=== PATIENT | female | born 1965 | race Caucasian/White ===

== ENCOUNTER 2018-08-28 16:11 | Inpatient (IN) | payer MEDICAID ==
[~2018-08-28] VITALS: Ht 167.6 cm; Wt 99.8 kg
[2018-08-28 16:15] VITALS: BP 132/84
--- NOTE | 2018-08-28 16:25 | NUR ---
biba with c/o bl legs, right hip, and "spine pain radiating to head" x today. DENIES N/V/D; SKIN IS PINK/WARM/DRY; AAOX4 WITH EVEN AND STEADY GAIT; LUNGS CLEAR BL; HR EVEN AND REGULAR; PT DENIES ANY FEVER, CP, SOB, OR COUGH AT THIS TIME; PATIENT STATES PAIN OF 10/10 AT THIS TIME; VSS; PATIENT POSITIONED FOR COMFORT; HOB ELEVATED; BEDRAILS UP X2; BED DOWN. ER MD MADE AWARE OF PT STATUS.
[2018-08-28] MEDS ORDERED: NACL 0.9% 1,000 ML IV SCH (16:30)
[2018-08-28] MEDS ORDERED: PIPERACILLIN/TAZOBACTAM 3.375 GM in DEXT 5% MINI-BAG PLUS 50 ML IV ONE (16:30)
--- NOTE | 2018-08-28 16:40 | NUR ---
# 16 FR Sue catheter utilizing sterile technique. Immediate return of cloudy, yellow urine noted. Bedside drainage bag placed below level of bladder. Urine sample collected and sent to lab. Pt tolerated procedure well.
[2018-08-28] MEDS ORDERED: PIPERACILLIN/TAZOBACTAM 3.375 GM VIAL IV ONE (16:48)
--- NOTE | 2018-08-28 16:48 | NUR ---
rt at bedside
--- NOTE | 2018-08-28 16:48 | NUR ---
lab at bedside
--- NOTE | 2018-08-28 16:50 | NUR ---
LAB AT BEDSIDE.
--- NOTE | 2018-08-28 17:00 | NUR ---
Note undone in EDM - 08/28/18 at 1701 by JENNI biba with c/o bl legs, right hip, and "spine pain radiating to head" x today. DENIES N/V/D; SKIN IS PINK/WARM/DRY; AAOX4 WITH EVEN AND STEADY GAIT; LUNGS CLEAR BL; HR EVEN AND REGULAR; PT DENIES ANY FEVER, CP, SOB, OR COUGH AT THIS TIME; PATIENT STATES PAIN OF 10/10 AT THIS TIME; VSS; PATIENT POSITIONED FOR COMFORT; HOB ELEVATED; BEDRAILS UP X2; BED DOWN. ER MADE AWARE OF PT STATUS.
--- NOTE | 2018-08-28 17:02 | NUR ---
X-RAY AT BEDSIDE.
[2018-08-28 17:18] LABS: BASOPHILS % (AUTO) 0.2 % (0.0-2.0); EOSINOPHILS # (AUTO) 0.5 K/uL (0-0.4); HEMATOCRIT 47.3 % (36-48); LYMPHOCYTES # (AUTO) 2.1 K/uL (2.5-16.5); LYMPHOCYTES % (AUTO) 34.7 % (20.5-51.1); MEAN CORPUSCULAR HEMOGLOBIN 33 pg (27-31); MEAN CORPUSCULAR HGB CONC 34 g/dL (33-37); MEAN CORPUSCULAR VOLUME 96.7 fL (80-94); MONOCYTES # (AUTO) 0.5 K/uL (0.8-1.0); MONOCYTES % (AUTO) 8.2 % (1.7-9.3); NEUTROPHILS # (AUTO) 2.9 K/uL (1.8-7.7); NEUTROPHILS % (AUTO) 48.9 % (42.2-75.2); PLATELET COUNT (AUTO) 126 K/uL (140-450); RED BLOOD CELL COUNT(AUTO) 4.89 MIL/uL (4.20-5.40); RED CELL DISTRIBUTION WIDTH 13.5 % (11.6-13.7); WHITE BLOOD COUNT (AUTO) 5.9 K/uL (4.8-10.8)
[2018-08-28 17:27] LABS: BARBITURATE, URINE NEG. ng/ml (NEG <=200); BENZODIAZEPINE, URINE NEG. ng/mL (NEG <=200); CANNABINOID, URINE NEG. ng/mL (NEG <=50); COCAINE, URINE NEG. ng/mL (NEG <=300); OPIATE, URINE NEG. ng/mL (NEG <=2000); PHENCYCLIDINE SCREEN,URINE NEG. ng/mL (NEG <=25)
[2018-08-28 17:39] LABS: PROTHROMBIN TIME 10.4 secs (10.8-13.4)
[2018-08-28 17:45] LABS: POTASSIUM 3.8 mmol/L (3.5-5.1); SODIUM SERUM 138 mmol/L (136-145)
[2018-08-28 17:46] LABS: ANION GAP 10.2 (8-16); ASPARTATE AMINOTRANSFERASE 88 U/L (15-37); CARBON DIOXIDE 26.6 mmol/L (21-32); CHLORIDE 105 mmol/L (98-107); CREATININE 0.6 mg/dL (0.6-1.3); GFR ARICAN-AMERICAN 134 mL/min (>90); GLUCOSE 88 mg/dL (74-106); TOTAL BILIRUBIN 0.7 mg/dL (0.0-1.0); UREA NITROGEN, BLOOD 13 mg/dL (7-18)
[2018-08-28 17:47] LABS: MAGNESIUM 1.8 mg/dL (1.8-2.4)
[2018-08-28] MEDS ORDERED: DOCUSATE SODIUM 100 MG GELCAP PO PRN (17:55)
[2018-08-28] MEDS ORDERED: ONDANSETRON 4 MG/2 ML VIAL IM/IVP PRN (17:55)
[2018-08-28] MEDS ORDERED: ACETAMINOPHEN 325 MG TAB PO PRN (17:55)
[2018-08-28 18:03] LABS: APPEARANCE,URINE SLIGHTLY CLOUDY (CLEAR); BILIRUBIN,URINE NEGATIVE (NEGATIVE); BLOOD, URINE 1+ (NEGATIVE); COLOR,URINE YELLOW (YELLOW); NITRITE, URINE POSITIVE (NEGATIVE); PH,URINE 6.5 (5.0-9.0); UGLUCOSE NEGATIVE (NEGATIVE)
[2018-08-28 18:04] LABS: LEUKOCYTE ESTERASE ,URINE 3+ (NEGATIVE); RBC,URINE 3-10 (FEW) /HPF (0-5); URINE AMORPHOUS URATE 2+ /HPF (None Seen); WBC,URINE TOO MANY TO COUNT /HPF (0-5)
[2018-08-28 18:05] LABS: ACETONE, SERUM NEGATIVE (NEGATIVE)
--- NOTE | 2018-08-28 18:17 | NUR ---
PALMIRA ADMITTED TO THE HOSPITAL TO THE CARE OF [facility] WITH DR ACOSTA FOLLOWING. PATIENT STABLE DURING TRANSFER IN [facility]. REPORT GIVEN TO DIEGO DUNCAN.
[2018-08-28 18:29] VITALS: BP 136/85
[2018-08-28] MEDS ORDERED: ZOLPIDEM 5 MG TAB PO PRN (18:30)
[2018-08-28] MEDS ORDERED: LORazepam 2 MG/ML VIAL IM/IVP PRN (18:30)
[2018-08-28 18:32] LABS: CHOL/HDL RATIO 4.3 (1-4.5); PHOSPHORUS 3.3 mg/dL (2.5-4.9)
[2018-08-28 19:00] LABS: FREE T4 (FREE THYROXINE) 1.36 ng/dL (0.76-1.46)
--- NOTE | 2018-08-28 19:30 | NUR ---
RECEIVED BEDSIDE REPORT FROM DAY SHIFT NURSE MARGA RN, PT RESTING, NO DISTRESS NOTED, IV TO L FA 20G PATENT, INTACT, SL AT THIS MOMENT, PT ON ROOM AIR, NO SOB NOTED, PT ARRIVED AT UNIT AT 1805, ORIENT PT TO ROOM, BED, CALL LIGHT, PT STATED UNDERSTANDING, INITIAL ASSESSMENT DONE, ALL SAFETY PRECAUTION MET, CALL LIGHT WITHIN REACH, WILL CONTINUE TO MONITOR.
[2018-08-28] MEDS: MORPHINE SULFATE 4 MG/ML SYR IVP PRN (19:41)
--- NOTE | 2018-08-28 19:41 | NUR ---
PT STATED HAVING PAIN 8/10 TO THE BACK AND LEG, PAIN MEDICATION PER MD ORDER ADMINISTERED, PT TOLERATED WELL, NO DISTRESS NOTED, CALL LIGHT WITHIN REACH, WILL CONTINUE TO MONITOR.
[2018-08-28] MEDS ORDERED: ARIP15TA1 PO (19:43)
[2018-08-28] MEDS ORDERED: GABA300C PO (19:43)
[2018-08-28] MEDS ORDERED: BACL10TA4 PO (19:43)
[2018-08-28] MEDS: NACL 0.9% 1,000 ML IV SCH (19:45)
[2018-08-28 20:00] VITALS: BP 159/99
[2018-08-28] MEDS ORDERED: GABAPENTIN 300 MG CAP PO SCH (20:00)
[2018-08-28] MEDS: BACLOFEN 10 MG TAB PO SCH (20:58)
--- NOTE | 2018-08-28 21:00 | NUR ---
HEPARIN SUB Q INJECTION NOT ADMINISTERED DUE TO PT LOW PLATELETS.
--- NOTE | 2018-08-28 21:13 | NUR ---
PT STATED HAVING TROUBLE SLEEPING AND REQUESTED SLEEPING MEDICATION, MEDICATION PER MD ORDER ADMINISTERED, PT ALSO STATED SHE HAS NOT DONE BM SINCE 4 DAYS AGO, COLACE PER MD ORDER GIVEN, PT TOLERATED WELL, NO DISTRESS NOTED, CALL LIGHT WITHIN REACH, WILL CONTINUE TO MONITOR.
[2018-08-29 00:01] VITALS: BP 141/86
[2018-08-29] MEDS: MORPHINE SULFATE 4 MG/ML SYR IVP PRN ×3 (00:29→09:44)
--- NOTE | 2018-08-29 00:29 | NUR ---
CHECKED ON PT, V/S TAKEN, WITHIN PT BASELINE, PT STATED HAVING PAIN, PAIN MEDICATION ADMINISTERED, PER DR ORDER, CALL LIGHT WITHIN REACH, WILL CONTINUE TO MONITOR.
--- NOTE | 2018-08-29 03:39 | NUR ---
PT RESTING, NO DISTRESS NOTED, V/S TAKEN WITHIN PT BASELINE, CALL LIHGT WITHIN REACH, WILL CONTINUE TO MONITOR.
[2018-08-29] MEDS: NACL 0.9% 1,000 ML IV SCH ×3 (04:27→17:52)
--- NOTE | 2018-08-29 05:03 | NUR ---
PT C/O PAIN, PAIN MEDICATION ORDERED ADMINISTERED, PT TOLERATED WELL, NO DISTRESS NOTED, CALL LIGHT WITHIN REACH, WILL CONTINUE TO MONITOR.
[2018-08-29 07:03] LABS: BASOPHILS % (AUTO) 0.8 % (0.0-2.0); EOSINOPHILS # (AUTO) 0.2 K/uL (0-0.4); EOSINOPHILS % (AUTO) 3.4 % (0.0-4.0); HEMATOCRIT 44.7 % (36-48); HEMOGLOBIN 15.1 g/dL (12.0-16.0); LYMPHOCYTES # (AUTO) 2.7 K/uL (2.5-16.5); LYMPHOCYTES % (AUTO) 44.9 % (20.5-51.1); MEAN CORPUSCULAR HEMOGLOBIN 33 pg (27-31); MEAN CORPUSCULAR HGB CONC 34 g/dL (33-37); MEAN CORPUSCULAR VOLUME 97.7 fL (80-94); MONOCYTES # (AUTO) 0.5 K/uL (0.8-1.0); NEUTROPHILS # (AUTO) 2.6 K/uL (1.8-7.7); NEUTROPHILS % (AUTO) 42.9 % (42.2-75.2); PLATELET COUNT (AUTO) 136 K/uL (140-450); RED BLOOD CELL COUNT(AUTO) 4.58 MIL/uL (4.20-5.40); RED CELL DISTRIBUTION WIDTH 13.7 % (11.6-13.7)
[2018-08-29 07:16] LABS: ANION GAP 11.5 (8-16); CARBON DIOXIDE 26.5 mmol/L (21-32); CREATININE 0.6 mg/dL (0.6-1.3)
--- NOTE | 2018-08-29 07:18 | NUR ---
ENDORSED PT TO DAY SHIFT NURSE MARGA RN, PT STABLE, NO DISTRESS NOTED, CALL LIGHT WITHIN REACH.
--- NOTE | 2018-08-29 07:18 | NUR ---
RECEIVED PATIENT REPORT AT BEDSIDE. PATIENT IS ASLEEP BUT AROUSABLE. NO S/S OF DISTRESS NOTED AT THIS TIME. FALL PRECAUTIONS IN PLACE. WILL CONTINUE TO MONITOR
[2018-08-29 07:24] LABS: MAGNESIUM 1.8 mg/dL (1.8-2.4); PHOSPHORUS 3.9 mg/dL (2.5-4.9)
--- NOTE | 2018-08-29 07:44 | NUR ---
PATIENT HAS BEEN SCREENED AND CATEGORIZED MODERATE NUTRITION RISK. PATIENT WILL BE SEEN WITHIN 3-5 DAYS OF ADMISSION. 08/31/18 09/02/[address]
[2018-08-29 08:00] VITALS: BP 144/85
[2018-08-29] MEDS: BACLOFEN 10 MG TAB PO SCH ×2 (09:31→21:04)
[2018-08-29] MEDS: GABAPENTIN 300 MG CAP PO SCH ×3 (09:32→17:52)
[2018-08-29] MEDS: LACTOBACILLUS RHAMNOSUS GG 1 EACH CAP PO SCH (09:32)
[2018-08-29] MEDS: NICOTINE TRANSD SYS 7 MG/24 HR PATCH TD SCH (09:32)
[2018-08-29] MEDS: ARIPiprazole 10 MG TAB PO SCH (09:33)
--- NOTE | 2018-08-29 10:46 | NUR ---
PATIENT SPEAKING WITH THE ATTORNEY LAW CLERK REGARDING PLACEMENT
[2018-08-29] MEDS ORDERED: ATORVASTATIN 20 MG TAB PO SCH (11:31)
[2018-08-29] MEDS ORDERED: ASPIRIN 81 MG TAB.CHEW PO SCH (11:32)
--- NOTE | 2018-08-29 14:55 | NUR ---
Systems Security Consultant Note: I met with patient at bedside. I introduced myself to patient and explained to her my role as a medical legal investigator. She verbalized understanding. I obtained the following information from patient. Prior to hospital admission she was living in [place], [place]. A account supervisor helped her find a room that was for rent. She was paying $700 a month for rent. She stated the property inspector (Berny Severino) told the account supervisor patient had 5 days to get out of room. She reported she does not want to pursue any type of legal action against property inspector for not properly evicting her. She told me she paid property inspector for the month of August and he will be refunding $400 on Saturday09/01/18. She sated she receives $910 from SSDI per month and does not have any SSDI funds at this time. She told me she does not have any other place to go upon discharge. She said her ravin lift is in a storage unit located in [place], [place] and her brother Mark has access to storage unit. I told her that I was not able to assist her with room and board placement, unless she had SSDI funds available. I explained to her that owners/administrators of room and boards do not accept patients unless they have SSDI/SSI funds available. She verbalized understanding. She denied alcohol/substance abuse. I provided het with a list of homeless shelters, food sinha, and room and boards. I also provided her with a list of counseling/mental health services per patient's request. She denied SI and HI. I faxed inquiries to the following snfs in case patient needs skilled and/or fci snf placement: [facility] Addendum: 09/01/18 at 0833 by Lizett Cameron SS correction: I provided her with a list of homeless shelters, food sinha, and room and boards.
--- NOTE | 2018-08-29 15:04 | NUR ---
PATIENT ASLEEP IN BED. NO S/S OF DISTRESS NOTED
--- NOTE | 2018-08-29 15:30 | NUR ---
HIGHTOWER CATHETER DISCONTINUED 1200ML OF CLEAR YELLOW URINE OUTPUT NOTED
--- NOTE | 2018-08-29 15:31 | NUR ---
PATIENT HAD A BM. STOOL LARGE AND SOLID. PATIENT CLEANED AND REPOSITIONED FOR COMFORT. WILL CONTINUE TO MONITOR
[2018-08-29 16:36] VITALS: BP 114/81
[2018-08-29] MEDS: ALBUTEROL SULFATE/IPRATROPIU 3 ML SOL IH PRN (18:51)
--- NOTE | 2018-08-29 19:19 | NUR ---
PATIENT REPORT GIVEN AT BEDSIDE. PATIENT ENDORSED IN STABLE CONDITION
--- NOTE | 2018-08-29 19:20 | NUR ---
RECEIVED BEDSIDE REPORT FROM DAY SHIFT NURSE MARGA RN, PT STABLE, NO DISTRESS NOTED, IV TO R AC 20G, PATENT, INTACT, INFUSING NS @ 50ML/HR, INFUSING WELL, PT ON ROOM AIR, NO SOB, INITIAL ASSESSMENT DONE, ALL SAFETY PRECAUTION MET, CALL LIGHT WITHIN REACH, WILL CONTINUE TO MONITOR.
--- NOTE | 2018-08-29 19:45 | NUR ---
ENDORSED PT TO DIEGO MELENDEZ FOR CONTINUOUS OF CARE, PT IN STABLE CONDITION.
--- NOTE | 2018-08-29 19:46 | NUR ---
RECEIVED ENDORSEMENT FROM HEATHER CORTEZ AT BEDSIDE, DUE TO SWITCH IN ASSIGNMENT. PT IN STABLE CONDITION.
--- NOTE | 2018-08-29 20:00 | NUR ---
PT IN BED RESTING WITH EYES CLOSED, HOWEVER PT AROUSABLE TO PAIN. V/S FOLLOWS T 99.2 P 80 R 20 B/P 127/61 02 98% ON R/A. PT IS IN LOW BED WITH ALL FALLS PRECAUTIONS IN PLACE. PT /CO MODERATE PAIN IN HER BACK AND LEGS 5/10.
--- NOTE | 2018-08-29 20:25 | NUR ---
PT GIVEN ORDERED BACLOFEN FOR C/O OF MODERATE PAIN IN LEGS AND BACK. WILL CONTINUE TO MONITOR PT FOR PAIN RELIEF.
--- NOTE | 2018-08-29 20:30 | NUR ---
PT PLATELETS ARE 136(L) TRENDING UPWARD FROM 126. DR. YOON PRIMARY RESIDENT MD CONSULTED. DR. YOON SAID TO GIVE BECAUSE RESIDENT HAS C/O OF LEG PAIN AND SEQUENTIALS CANNOT BE USED. PT GIVEN ORDERED HEPARIN.
--- NOTE | 2018-08-29 22:30 | NUR ---
PT RESTING PEACEFULLY WITH EYES CLOSED NO C/O VOICED AND NO S/S OF PAIN OR DISTRESS NOTED. ALL FALLS PRECAUTIONS IN PLACE AND PT HAS N/S RUNNING AT 50MLS/HR.
[2018-08-30] VITALS: BP 153/92
[2018-08-30] MEDS: MORPHINE SULFATE 4 MG/ML SYR IVP PRN ×3 (01:26→22:13)
--- NOTE | 2018-08-30 01:31 | NUR ---
PT C/O SEVERE PAIN IN LEGS AND BACK 02/18 PAIN WAS GIVEN IVP /PRN MORPHINE 2MG/1/2ML.WILL CONTINUE TO MONIOTR FOR EFFECTIVENESS.
--- NOTE | 2018-08-30 03:30 | NUR ---
PT SLEEPING NO S/S OF PAIN O DISTRESS NOTED.
--- NOTE | 2018-08-30 07:25 | NUR ---
RPORT GIVEN TO ASHU RN DAYSHIFT NURSE AT BEDSIDE PT IN STABLE CONDITION.
--- NOTE | 2018-08-30 07:30 | NUR ---
RECEIVED PT AAOX4. NO SOB NOTED. NO C/O PAIN AT THIS TIME. IV TO RT FOREARM PATENT AND INTACT, CHEST DIMINISHED AIR ENTRY TO THE BASES. ABDOMEN SOFT, BOWEL SOUNDS PRESENT. PT HAS BLE PARALYSIS, PT ABLE TO TURN SELF FROM SIDE TO SIDE WITH HELP. INSTRUCTED PT TO CALL FOR ASSISTANCE, CALL LIGHT WITHIN REACH, PT VERBALIZED UNDERSTANDING.
[2018-08-30 08:00] VITALS: BP 146/78
[2018-08-30 08:34] LABS: BASOPHILS # (AUTO) 0.1 K/uL (0.00-0.22); BASOPHILS % (AUTO) 1.1 % (0.0-2.0); EOSINOPHILS # (AUTO) 0.2 K/uL (0-0.4); EOSINOPHILS % (AUTO) 2.9 % (0.0-4.0); HEMATOCRIT 44.5 % (36-48); HEMOGLOBIN 14.8 g/dL (12.0-16.0); LYMPHOCYTES # (AUTO) 2.8 K/uL (2.5-16.5); LYMPHOCYTES % (AUTO) 51.3 % (20.5-51.1); MEAN CORPUSCULAR HEMOGLOBIN 33 pg (27-31); MEAN CORPUSCULAR HGB CONC 33 g/dL (33-37); MEAN CORPUSCULAR VOLUME 97.9 fL (80-94); MONOCYTES # (AUTO) 0.4 K/uL (0.8-1.0); MONOCYTES % (AUTO) 6.4 % (1.7-9.3); NEUTROPHILS # (AUTO) 2.1 K/uL (1.8-7.7); NEUTROPHILS % (AUTO) 38.3 % (42.2-75.2); PLATELET COUNT (AUTO) 124 K/uL (140-450); RED BLOOD CELL COUNT(AUTO) 4.55 MIL/uL (4.20-5.40); RED CELL DISTRIBUTION WIDTH 13.5 % (11.6-13.7); WHITE BLOOD COUNT (AUTO) 5.5 K/uL (4.8-10.8)
[2018-08-30 08:51] LABS: ANION GAP 8.2 (8-16); CARBON DIOXIDE 28.5 mmol/L (21-32); CREATININE 0.5 mg/dL (0.6-1.3); POTASSIUM 3.7 mmol/L (3.5-5.1)
[2018-08-30 09:06] LABS: MAGNESIUM 1.9 mg/dL (1.8-2.4); PHOSPHORUS 3.4 mg/dL (2.5-4.9)
[2018-08-30] MEDS: GABAPENTIN 300 MG CAP PO SCH ×3 (09:48→17:56)
[2018-08-30] MEDS: ASPIRIN 81 MG TAB.CHEW PO SCH (09:48)
[2018-08-30] MEDS: ARIPiprazole 10 MG TAB PO SCH (09:48)
[2018-08-30] MEDS: ATORVASTATIN 20 MG TAB PO SCH (09:48)
[2018-08-30] MEDS: BACLOFEN 10 MG TAB PO SCH ×2 (09:49→22:00)
[2018-08-30] MEDS: LACTOBACILLUS RHAMNOSUS GG 1 EACH CAP PO SCH (09:49)
[2018-08-30] MEDS: HYDROcodone/APAP 5/325 MG 1 TAB TAB PO PRN (09:49)
[2018-08-30] MEDS: NICOTINE TRANSD SYS 7 MG/24 HR PATCH TD SCH (09:53)
--- NOTE | 2018-08-30 12:20 | NUR ---
PT CONSUMED 100% OF BREAKFAST AND LUNCH. FOOD TOLERATED WELL.
[2018-08-30 17:00] VITALS: BP 142/82
[2018-08-30] MEDS: NACL 0.9% 1,000 ML IV SCH (17:53)
--- NOTE | 2018-08-30 19:00 | NUR ---
PT AWAKE, TALKING TO HER PHONE. NO SOB NOTED. NO COMPLAINTS MADE. WILL ENDORSE TO NEXT SHIFT NURSE FOR CONTINUITY OF CARE.
--- NOTE | 2018-08-30 19:15 | NUR ---
RECEIVED REPORT FROM ASHU CORTEZ DAYSHIFT FOR CONTINUITY OF CARE, PT IN STABLE CONDITION.
--- NOTE | 2018-08-30 20:00 | NUR ---
PT IN BED WITH ALL FALLS PRECAUTIONS IN PLACE. IV SITE R FA 20G INTACT AND RUNNING NS AT 20MLS/HR. V/S FOLLOWS T 98.0 P 80 R 18 B/P 138/80 02 93% ON R/A. NO C/O VOICED AND CALL FREEMAN IN REACH.
--- NOTE | 2018-08-30 21:00 | NUR ---
SPOKE WITH DR. YOON CONCERNING PT HEPARIN ORDER WIT PT PLATELETS AT 126. DR. YOON SAID TO GIVE MEDICATION. PT ALSO GIVEN ORDERED BACLOFEN.
--- NOTE | 2018-08-30 22:29 | NUR ---
PT C/O 7/10 PAIN IN LOWER EXTREMITIES, GIVEN 2MG MORPHINE IVP. WILL MONITOR PT FOR PAIN RELIEF.
[2018-08-31] VITALS: BP 121/73
--- NOTE | 2018-08-31 07:25 | NUR ---
REPORT GIVEN TO DORA CORTEZ DAYSHIFT NURSE AT BEDSIDE FOR CONTINUITY OF CARE, PT IN STABLE CONDITION.
--- NOTE | 2018-08-31 07:30 | NUR ---
RECEIVED PT FROM BUSINESS MACHINES TEACHER NURSE, PT IS ASLEEP LYING ON THE BED WITH SIDE RAILS UP AND CALL LIGHT WITHIN REACH, RESPIRATION EVEN. FALL PRECAUTION INITIATED. PT HAS AN IV LINE ON THE RT FA G.20 WITH NS AT 20ML/HR, INFUSING AND INTACT. NO SIGN OF DISTRESS NOTED AND WILL MONITOR PT.
[2018-08-31 08:00] VITALS: BP 155/81
--- NOTE | 2018-08-31 08:15 | NUR ---
PT IS AWAKE AND VITAL SIGNS TAKEN AND IS WITHIN NORMAL LIMIT. NO SIGN OF DISTRESS NOTED AND WILL CONTINUE TO MONITOR PT.
[2018-08-31] MEDS: GABAPENTIN 300 MG CAP PO SCH ×3 (09:02→17:53)
[2018-08-31] MEDS: ATORVASTATIN 20 MG TAB PO SCH (09:02)
[2018-08-31] MEDS: BACLOFEN 10 MG TAB PO SCH ×2 (09:02→22:16)
[2018-08-31] MEDS: LACTOBACILLUS RHAMNOSUS GG 1 EACH CAP PO SCH (09:02)
[2018-08-31] MEDS: ASPIRIN 81 MG TAB.CHEW PO SCH (09:02)
[2018-08-31] MEDS: ARIPiprazole 10 MG TAB PO SCH (09:03)
--- NOTE | 2018-08-31 09:17 | NUR ---
RECEIVED PATIENT ON ROOM AIR, PULSE OX SATURATION 94%. NO SOB. NO RESPIRATORY DISTRESS NOTED AT THIS TIME. NO HHN GIVEN, NOT INDICATED AT THIS TIME. WILL CONTINUE TO MONITOR.
[2018-08-31] MEDS: NACL 0.9% 1,000 ML IV SCH (15:13)
[2018-08-31] MEDS: NICOTINE TRANSD SYS 7 MG/24 HR PATCH TD SCH (15:23)
[2018-08-31] MEDS: MORPHINE SULFATE 4 MG/ML SYR IVP PRN (15:23)
[2018-08-31 16:00] VITALS: BP 144/74
--- NOTE | 2018-08-31 17:54 | NUR ---
PT IS AWAKE AND EATING HER DINNER, MEDICATIONS GIVEN VIA ORAL AND IV PIGGYBACK AND PT TOLERATED IT. NO SIGN OF DISTRESS NOTED AND WILL CONTINUE TO MONITOR PT.
--- NOTE | 2018-08-31 19:15 | NUR ---
RECEIVED ENDORSEMENT FROM DORA CORTEZ DAYSHIFT NURSE FOR CONTINUITY OF CARE, PT IN STABLE CONDITION.
--- NOTE | 2018-08-31 19:15 | NUR ---
ENDORSED PT TO FINAL INSPECTOR MOTORCYLES NURSEAL FOR CONTINUITY OF CARE. PT IS STABLE AT THIS TIME.
[2018-08-31 20:00] VITALS: BP 137/81
--- NOTE | 2018-08-31 20:00 | NUR ---
PT IN BED AOX4 WITH ALL FALLS PRECAUTIONS IN PLACE. PT WAS TURNED, CHANGED AND REPOSITIONED. V/S FOLLOWS T 98.2 P 78 R 20 B/P 124/73. NO C/O VOICED AT THIS TIME.
--- NOTE | 2018-08-31 21:30 | NUR ---
PT GIVEN SCHEDULED BACLOFEN. LAST BLOOD DRAW WAS YESTERDAY, PT PLATELET LEVEL WAS 124, SPOKE WITH DR. YOON REGARDING HEPARIN ORDER. DR. YOON SAID TO GIVEN HEPARIN DUE DVT PROTOCOL AND TO PT BEING BED BOUND DUE TO PARAPLEGIA OF LOWER LIMBS.
[2018-08-31] MEDS: guaiFENesin 20 MG/ML UDC PO PRN (22:19)
[2018-08-31] MEDS: MORPHINE SULFATE 2 MG/ML SYR IVP PRN (22:21)
--- NOTE | 2018-08-31 22:30 | NUR ---
PT C/O SEVERE PAIN IN LOWER LIMBS 02/18 PAIN WAS GIVEN MORPHINE 1MG IVP PRN ORDERED. WILL CONTINUE TO MONITOR PT FOR EFFECTIVENESS OF PAIN MEDICATION. PT ALSO TURNED , CHANGED AND REPOSITIONED/ BED IN LOW POSITION AND ALL FALLS PROTOCOL IN PLACE.
--- NOTE | 2018-09-01 00:30 | NUR ---
PT IN BED RESTING BUT AROUSABLE TO NAME. CONTINUES ON FALLS PRECAUTIONS. PT DECLINES TO BE TURNED AND CHANGED AT THIS TIME. WILL RETURN TO ATTEMPT TO TURN, CHANGE AND REPOSITION PT. V/S FOLLOWS T 98.6 P 75 R18 B/P 137/81 02 92% ON ROOM AIR. PT SAID SHE HAS NO PAIN AT THIS TIME.
--- NOTE | 2018-09-01 03:30 | NUR ---
PT TURNED , CHANGED AND REPOSITIONED.
[2018-09-01] MEDS: MORPHINE SULFATE 2 MG/ML SYR IVP PRN (04:45)
--- NOTE | 2018-09-01 05:00 | NUR ---
PT C/O SEVERE PAIN IN BLE GIVEN IVP/PRN MORPHINE. WILL CONTINUE TO MONITOR FOR PAIN
--- NOTE | 2018-09-01 07:30 | NUR ---
REPORT GIVEN TO CRYS CORTEZ DAYSHIFT NURSE AT BEDSIDE FOR CONTINUITY OF CARE, PT IN STABLE CONDITION.
--- NOTE | 2018-09-01 07:31 | NUR ---
RECEIVED REPORT FROM PET CARE ASSOCIATE NURSE. PT IN STABLE CONDITION. RESPIRATIONS EVEN AND UNLABORED. IV INTACT AND PATENT. SAFETY MEASURES IN PLACE. CALL LIGHT AT BEDSIDE. BED IN LOW POSITION. WILL CONTINUE TO MONITOR.
[2018-09-01 08:00] VITALS: BP 141/86
--- NOTE | 2018-09-01 09:00 | NUR ---
GAVE ORDERED DUE MEDICATIONS. PT TOLERATED WELL. WILL CONTINUE TO MONITOR.
[2018-09-01] MEDS: BACLOFEN 10 MG TAB PO SCH ×2 (09:16→20:48)
[2018-09-01] MEDS: ATORVASTATIN 20 MG TAB PO SCH (09:17)
[2018-09-01] MEDS: GABAPENTIN 300 MG CAP PO SCH ×3 (09:18→16:54)
[2018-09-01] MEDS: LACTOBACILLUS RHAMNOSUS GG 1 EACH CAP PO SCH (09:18)
[2018-09-01] MEDS: ARIPiprazole 10 MG TAB PO SCH (09:18)
[2018-09-01] MEDS: ASPIRIN 81 MG TAB.CHEW PO SCH (09:18)
[2018-09-01] MEDS ORDERED: KETOROLAC 15 MG/ML VIAL IM SCH (09:45)
--- NOTE | 2018-09-01 10:40 | NUR ---
ASSISTED WITH REPOSITIONING. PT TOLERATED WELL
--- NOTE | 2018-09-01 12:41 | NUR ---
Gym Teacher Note: Usp Facility placement follow up: Pending response from Giovanni at [facility] Per Cece from [facility] , they don't have a contract with [facility], unable to accept patient. Per Pham from [facility] , they have a contract with [facility] but do not have any female beds available at this time. Per Lalitha from [facility] , they don't have a contract with [facility], unable to accept patient. Per Madeline from [facility] , they don't have a contract with [facility], unable to accept patient.
--- NOTE | 2018-09-01 12:57 | NUR ---
Burning Supervisor Note: Residential Facility placement follow up: Pending response from Giovanni at [facility] I left a message with receptionist airline lounge Hilda for their admission coordinator Joanna at [facility] . Per [facility] from [facility] , they dont have any beds available at this time. Per James from [facility] , they dont have any beds available at this time. I faxed inquiries to [facility] and [facility]. Addendum: 09/02/18 at 1024 by Lizett Cameron SS Late entry for 09/01/18: Per Giovanni at [facility] , they cannot accept patient due to homelessness. I explained to her [facility] and might be able to go to a room and board upon discharge from snf. Per Giovanni, they cannot discharge their patients to room and boards or motels/hotels. Per Joanna at [facility] , they do not have a contract with [facility], unable to accept patient.
[2018-09-01] MEDS ORDERED: ACET-9525 PO (13:39)
[2018-09-01] MEDS ORDERED: NICO1PAT64 TD (13:39)
[2018-09-01] MEDS ORDERED: CEFT1SOL1 IV (13:39)
[2018-09-01] MEDS ORDERED: DOCU-299 PO (13:39)
[2018-09-01] MEDS ORDERED: LACT10CA PO (13:39)
[2018-09-01] MEDS ORDERED: ALBU3SOL83 IH (13:39)
[2018-09-01] MEDS ORDERED: ROB PO (13:39)
[2018-09-01] MEDS ORDERED: ASPI81CT95 PO (13:40)
[2018-09-01] MEDS ORDERED: ATOR20TA40 PO (13:40)
[2018-09-01] MEDS: NACL 0.9% 1,000 ML IV SCH ×2 (15:13→23:35)
[2018-09-01 16:00] VITALS: BP 141/67
[2018-09-01] MEDS: NICOTINE TRANSD SYS 7 MG/24 HR PATCH TD SCH (16:53)
--- NOTE | 2018-09-01 19:28 | NUR ---
GAVE REPORT TO NOVELTY MAKER NURSE. PT IN STABLE CONDITION.
--- NOTE | 2018-09-01 19:29 | NUR ---
RECD. COMFORTABLY SLEEPING IN BED, EASILY AROUSABLE. A/OX4. RESPIRATION EVEN AND UNLABORED. IV OF NS AT 20 ML/HR INFUSING, RIGHT FOREARM G20. ENCOURAGE TO DRINK MORE WATER, CRANBERRY JUICES GIVEN. PLAN OF CARE FOR THE SHIFT DISCUSSED. VERBALIZED UNDERSTANDING. DENIES PAIN 0/10.
--- NOTE | 2018-09-01 19:40 | NUR ---
ASSISTED WITH REPOSITIONING. PT TOLERATED WELL Addendum: 09/01/18 at 1944 by Brandie Hewitt RN 1040 APPLICATION
--- NOTE | 2018-09-01 20:00 | NUR ---
Patient's Plan of Care was discussed and reviewed with BODY MAKER MACHINE SETTER:
--- NOTE | 2018-09-01 20:00 | NUR ---
Patient's Plan of Care was discussed and reviewed with SURGICAL CONSULTANT: KERRI YOUSSEF
[2018-09-01] MEDS: HYDROcodone/APAP 5/325 MG 1 TAB TAB PO PRN (20:59)
[2018-09-01] MEDS: guaiFENesin 20 MG/ML UDC PO PRN (21:04)
--- NOTE | 2018-09-01 22:33 | NUR ---
WITH ANXIETY, MEDICATED WITH ATIVAN 1 GM. IVP BY DIEGO DIAZ.
--- NOTE | 2018-09-01 23:30 | NUR ---
NO AGITATION, SLEEPING COMFORTABLY IN BED.
[2018-09-02] VITALS: BP 127/71
--- NOTE | 2018-09-02 03:30 | NUR ---
SLEEPING COMFORTABLY IN BED.
[2018-09-02 06:10] LABS: BASOPHILS % (AUTO) 0.9 % (0.0-2.0); EOSINOPHILS # (AUTO) 0.2 K/uL (0-0.4); EOSINOPHILS % (AUTO) 3.9 % (0.0-4.0); HEMATOCRIT 44.4 % (36-48); HEMOGLOBIN 14.8 g/dL (12.0-16.0); LYMPHOCYTES # (AUTO) 2.5 K/uL (2.5-16.5); LYMPHOCYTES % (AUTO) 44.4 % (20.5-51.1); MEAN CORPUSCULAR HEMOGLOBIN 33 pg (27-31); MEAN CORPUSCULAR HGB CONC 33 g/dL (33-37); MEAN CORPUSCULAR VOLUME 97.8 fL (80-94); MONOCYTES # (AUTO) 0.4 K/uL (0.8-1.0); MONOCYTES % (AUTO) 7.1 % (1.7-9.3); NEUTROPHILS # (AUTO) 2.5 K/uL (1.8-7.7); NEUTROPHILS % (AUTO) 43.7 % (42.2-75.2); PLATELET COUNT (AUTO) 119 K/uL (140-450); RED BLOOD CELL COUNT(AUTO) 4.54 MIL/uL (4.20-5.40); RED CELL DISTRIBUTION WIDTH 13.7 % (11.6-13.7); WHITE BLOOD COUNT (AUTO) 5.6 K/uL (4.8-10.8)
[2018-09-02 06:40] LABS: ANION GAP 9.3 (8-16); CARBON DIOXIDE 27.4 mmol/L (21-32); CREATININE 0.6 mg/dL (0.6-1.3); POTASSIUM 3.7 mmol/L (3.5-5.1)
--- NOTE | 2018-09-02 06:50 | NUR ---
ABLE TO SLEEP WELL. CONDITION REMAIN STABLE. WILL ENDORSE TO AM NURSE FOR CONTINUITY OF CARE.
[2018-09-02 06:52] LABS: MAGNESIUM 1.8 mg/dL (1.8-2.4); PHOSPHORUS 3.9 mg/dL (2.5-4.9)
--- NOTE | 2018-09-02 07:25 | NUR ---
ENDORSED TO AM SHIFT NURSE FOR CONTINUITY OF CARE.
--- NOTE | 2018-09-02 07:26 | NUR ---
RECEIVED REPORT FROM HYDRAULIC PRESS SERVICER NURSE. PT IN STABLE CONDITION. RESPIRATIONS EVEN AND UNLABORED. IV INTACT AND PATENT. SAFETY MEASURES IN PLACE. CALL LIGHT AT BEDSIDE. BED IN LOW POSITION. WILL CONTINUE TO MONITOR.
[2018-09-02 08:00] VITALS: BP 135/95
[2018-09-02] MEDS: ASPIRIN 81 MG TAB.CHEW PO SCH (09:26)
[2018-09-02] MEDS: ATORVASTATIN 20 MG TAB PO SCH (09:26)
[2018-09-02] MEDS: BACLOFEN 10 MG TAB PO SCH ×2 (09:26→20:35)
[2018-09-02] MEDS: LACTOBACILLUS RHAMNOSUS GG 1 EACH CAP PO SCH (09:26)
[2018-09-02] MEDS: GABAPENTIN 300 MG CAP PO SCH ×3 (09:26→16:25)
[2018-09-02] MEDS: ARIPiprazole 10 MG TAB PO SCH (09:26)
--- NOTE | 2018-09-02 10:30 | NUR ---
PT EXPLAINED SHE WOULD CALL FAMILY TO TRY TO FIND A PLACE TO STAY UPON DISCHARGE. WHEN ASKED PT STATED SHE HAS NO ONE AT THIS TIME.
--- NOTE | 2018-09-02 11:00 | NUR ---
PT GIVEN GROUP HOME INFORMATION AT THIS TIME.
--- NOTE | 2018-09-02 12:30 | NUR ---
JOSE SCHROEDER FROM [facility] AT BEDSIDE WITH PT AT THIS TIME TO CHECK ELIGIBILITY.
[2018-09-02] MEDS: NACL 0.9% 1,000 ML IV SCH (15:13)
--- NOTE | 2018-09-02 15:35 | NUR ---
CALLED JOSE SCHROEDER AT [facility] NO ANSWER AT THIS TIME.
--- NOTE | 2018-09-02 15:40 | NUR ---
CALLED DIRECTLY TO [facility] , NO ANSWER AT THIS TIME.
[2018-09-02 16:00] VITALS: BP 147/89
--- NOTE | 2018-09-02 16:01 | NUR ---
PT RECEIVED A CALL BACK FROM JOSE SCHROEDER AT [facility] SAID SHE WOULD TALK TO THE SEWER PIPE SORTER HERE AT [facility] ABOUT BEING EXCEPTED. Addendum: 09/02/18 at 2039 by Brandie Hewitt RN PT RECEIVED A CALL BACK FROM JOSE SCHROEDER AT [facility] SAID SHE WOULD TALK TO THE SEWER PIPE SORTER HERE AT [facility] ABOUT BEING ACCEPTED.
[2018-09-02] MEDS: guaiFENesin 20 MG/ML UDC PO PRN (16:25)
[2018-09-02] MEDS: NICOTINE TRANSD SYS 7 MG/24 HR PATCH TD SCH ×2 (16:26→16:53)
--- NOTE | 2018-09-02 17:19 | NUR ---
CALLED JOSE SCHROEDER STEAM PAN SPONGER OF [facility] , JOSE STATED THEY CAN NOT ACCEPT THE PT AT THIS TIME. DR. AMAYA NOTIFED.
--- NOTE | 2018-09-02 18:26 | NUR ---
SECURITY CALLED PER PT REQUEST TO SIGN DISCHARGE PAPERWORK. ALL QUESTIONS ANSWERED AT THIS TIME. PT VERBALIZED UNDERSTANDING OF DISCHARGE PAPERWORK. IV REMOVED LUMEN INTACT.
--- NOTE | 2018-09-02 19:30 | NUR ---
ASSUMED CARE OF PATIENT, AWAKE, ALERT AND ORIENTED. NO COMPLAINS. PENDING DC IN AM, ORDERS IN AND DC PAPERS SIGNED. LOOKING FOR PLACEMENT. CALL LIGHT WITHIN REACH. CARE BOARD UPDATED.
--- NOTE | 2018-09-02 19:30 | NUR ---
GAVE REPORT TO COTTON GROWER NURSE FOR CONTINUITY OF CARE. PT IN STABLE CONDITION.
--- NOTE | 2018-09-02 20:00 | NUR ---
PLAN OF CARE DISCUSSED WITH PATIENT, VERBALIZED UNDERSTANDING WELL. CALL LIGHT WITHIN REACH.
[2018-09-02] MEDS: HYDROcodone/APAP 5/325 MG 1 TAB TAB PO PRN (22:48)
[2018-09-02 23:07] VITALS: BP 144/88
--- NOTE | 2018-09-03 | NUR ---
ASLEEP. VITAL SIGNS STABLE. AFEBRILE. COMFORTABLE. CALL LIGHT WITHIN REACH.
[2018-09-03] MEDS: guaiFENesin 20 MG/ML UDC PO PRN (02:40)
--- NOTE | 2018-09-03 04:30 | NUR ---
ASLEEP NO COMPLAINS. CALL LIGHT WITHIN REACH.
--- NOTE | 2018-09-03 07:34 | NUR ---
ENDORSED CARE AT BEDSIDE WITH SHIRA CORTEZ, PATIENT IN STABLE CONDITION.
--- NOTE | 2018-09-03 07:35 | NUR ---
RECEIVED REPORT FROM THE TRACKMAN NURSE. PT IS AWAKE AND ORIENTED, SLEEPY. PT IS TO BE D/C TODAY. PT DOESN'T HAVE A PLACE TO GO. CARA LUCIA AND BEL HAS GIVEN INFORMATION FOR HOMELESS SHELTERS. PT IS PARAPLEGIA, WHEELCHAIR AT BEDSIDE. SKIN INTACT. IV REMOVED YESTERDAY BC PT HAD ORDERS FOR DISCHARGE YESTERDAY. LBM 09/03/18. PLAN FOR TODAY: D/C TODAY.
[2018-09-03 08:00] VITALS: BP 145/90
[2018-09-03] MEDS: BACLOFEN 10 MG TAB PO SCH ×2 (08:45→20:21)
[2018-09-03] MEDS: GABAPENTIN 300 MG CAP PO SCH ×3 (08:46→17:28)
[2018-09-03] MEDS: ASPIRIN 81 MG TAB.CHEW PO SCH (08:46)
[2018-09-03] MEDS: ATORVASTATIN 20 MG TAB PO SCH (08:46)
[2018-09-03] MEDS: ARIPiprazole 10 MG TAB PO SCH (08:46)
[2018-09-03 16:00] VITALS: BP 145/85
--- NOTE | 2018-09-03 17:10 | NUR ---
Domestic Travel Consultant Note: Late entry for 09/02/18: I met with patient at bedside to discuss discharge plan. I informed her that I was not able to find a nursing home facility able to accept patient. She verbalized understanding and stated she was planning to go to a hotel/motel upon discharge. She told me she was going to review list of room and boards I provided her with and make arrangements once she was at hotel/motel. She reported she did not need any additional community resources or social work case manager assistance.
--- NOTE | 2018-09-03 17:14 | NUR ---
Mechatronics Technologist Note: I met with patient this morning at bedside. She told me I was supposed to find her a home. I reminded her yesterday she had told me she was planning to go to a hotel/motel upon discharge. She responded she can't live in a hotel/motel and stated the sales property manager of her previous living arrangement had refunded her $400 and wanted assistance with room and board placement. I explained to her that I could not guarantee that I was going to be able to find her a room and board within that humphrey. I discussed with her the importance of her making her own living arrangement as well, including contacting family or support system to assist her. She verbalized understanding. I contacted the following persons for placement: Per Dejon from [facility] , no female beds available at this time (room and board). Per Scott from [facility] , they cannot accept non ambulatory patients. 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 The rate for a shared room at her board and care starts at $2,000. Per Tara from [facility] , their neurosurgery research director they are not able to accept patient. Tara stated director didnt provide her with a reason why they cant accept patient. Per Graciela from [place], [place] , they dont have a contract with [facility] (it is listed on the list of snfs contracted with [facility]). Per Brittany from [facility] , they cannot accept patient due to homelessness and substance abuse.
[2018-09-03] MEDS: NICOTINE TRANSD SYS 7 MG/24 HR PATCH TD SCH (17:28)
--- NOTE | 2018-09-03 19:33 | NUR ---
ENDORSED PT TO THE SHAPE BRICK MOLDER NURSE AT BEDSIDE FOR CONTINUITY OF CARE. PT IS IN STABLE CONDITION.
--- NOTE | 2018-09-03 19:33 | NUR ---
RECEIVED REPORT FORM DAY SHIFT NURSE AT PT BEDSIDE. PT AAOX4, RESTING IN BED COMFORTABLY. PT IS ON RA WITH RESPIRATIONS EVEN AND UNLABORED. PT HAS REFUSED IV ACCESS. PT SKIN IS INTACT. NO C/O PAIN AT THIS TIME. BED IS LOCKED, LOW POSITION WITH SIDE RAILS UP X2. CALL LIGHT IS WITHIN REACH. BOARD UPDATED. WILL CONTINUE TO MONITOR PT.
[2018-09-03] MEDS ORDERED: HYDROcodone/APAP 5/325 MG 1 TAB TAB PO ONE (19:55)
--- NOTE | 2018-09-03 20:21 | NUR ---
PT REFUSED SCHEDULED HEPARIN. BACLOFEN GIVEN. PT C/O PAIN, NORCO GIVEN. PT TOLERATED WELL. NO SIGNS OR SYMPTOMS OF DISTRESS. WILL CONTINUE TO MONITOR.
[2018-09-03] MEDS ORDERED: HYDROcodone/APAP 5/325 MG 1 TAB TAB ONE (20:27)
[2018-09-04] VITALS: BP_SYST 119; BP_SYST 149; BP_DIAS 65; BP_DIAS 83
--- NOTE | 2018-09-04 07:25 | NUR ---
ENDORSED PT TO DAY SHIFT NURSE FOR CONTINUITY OF CARE. PT IN STABLE CONDITION.
--- NOTE | 2018-09-04 07:26 | NUR ---
RECEIVED BEDSIDE REPORT FROM DIEGO KLINE. PT STABLE, SLEEPING BUT EASILY AROUSABLE. NO IV ACCESS. NO SIGNS OF DISTRESS NOTED. CALL LIGHT WITHIN REACH. BED IN LOW POSITION. SAFETY MEASURES IN PLACE. PLAN OF CARE REVIEWED.
[2018-09-04 08:00] VITALS: BP 146/82
[2018-09-04] MEDS: GABAPENTIN 300 MG CAP PO SCH ×3 (09:39→16:31)
[2018-09-04] MEDS: ASPIRIN 81 MG TAB.CHEW PO SCH (09:39)
[2018-09-04] MEDS: ATORVASTATIN 20 MG TAB PO SCH (09:39)
[2018-09-04] MEDS: ARIPiprazole 10 MG TAB PO SCH (09:40)
[2018-09-04] MEDS: BACLOFEN 10 MG TAB PO SCH ×2 (09:40→21:42)
--- NOTE | 2018-09-04 09:40 | NUR ---
ADMINISTERED SCHEDULED MEDICATIONS. PT TOLERATED WELL. NO OTHER NEEDS AT THIS TIME.
--- NOTE | 2018-09-04 11:25 | NUR ---
09/04/18 RD INITIAL ASSESSMENT COMPLETED PLEASE REFER TO NUTRITION ASSESSMENT UNDER CARE ACTIVITY FOR ESTIMATED NUTRITIONAL NEEDS. 1. CONTINUE REGULAR DIET TOLERATED 2. RD TO FOLLOW-UP 5-7 DAYS, LOW RISK ALEXSANDER CROUCH RD
--- NOTE | 2018-09-04 12:30 | NUR ---
ADMINISTERED SCHEDULED MEDICATION. PT TOLERATED WELL. NO OTHER NEEDS AT THIS TIME. PT STABLE, SLEEPING BUT EASILY AROUSABLE.
--- NOTE | 2018-09-04 14:51 | NUR ---
PT STABLE, SLEEPING BUT EASILY AROUSABLE. NO OTHER NEEDS AT THIS TIME.
[2018-09-04 16:00] VITALS: BP 110/71
--- NOTE | 2018-09-04 16:32 | NUR ---
ADMINISTERED SCHEDULED MEDICATION. PT TOLERATED WELL. NO OTHER NEEDS AT THIS TIME.
--- NOTE | 2018-09-04 18:30 | NUR ---
PT STABLE, AWAKE, AND ALERT ON THE PHONE. NO NEEDS AT THIS TIME.
--- NOTE | 2018-09-04 19:24 | NUR ---
RECEIVED REPORT FORM DAY SHIFT NURSE, DEMETRICE, AT PT BEDSIDE. PT AAOX4, RESTING IN BED COMFORTABLY. PT IS ON RA WITH RESPIRATIONS EVEN AND UNLABORED. PT HAS REFUSED IV ACCESS. PT SKIN IS INTACT. NO C/O PAIN AT THIS TIME. BED IS LOCKED, LOW POSITION WITH SIDE RAILS UP X2. CALL LIGHT IS WITHIN REACH. BOARD UPDATED. WILL CONTINUE TO MONITOR PT.
--- NOTE | 2018-09-04 19:24 | NUR ---
ENDORSED PT TO DIEGO KLINE FOR CONTINUITY OF CARE. PT STABLE, AWAKE, AND ALERT.
[2018-09-04] MEDS: ALBUTEROL SULFATE/IPRATROPIU 3 ML SOL IH PRN (19:32)
--- NOTE | 2018-09-04 21:42 | NUR ---
ADMINISTERED BACLOFEN. PT REFUSED HEPARIN. PT RESTING IN BED COMFORTABLY. NO SIGNS OR SYMPTOMS OF DISTRESS. WILL CONTINUE TO MONITOR.
[2018-09-05] VITALS: BP 123/78
--- NOTE | 2018-09-05 02:02 | NUR ---
PT ASLEEP IN BED. NO SIGNS OR SYMPTOMS OF DISTRESS. WILL CONTINUE TO MONITOR.
--- NOTE | 2018-09-05 07:15 | NUR ---
OK REPORT RECEIVED FROM CLOTH SECONDS SORTER NURSE. PT IS AWAKE AND ALERT, NO S/S OF ACUTE DISTRESS OR SOB NOTED. PT IS ON ROOM AIR, SKIN INTACT. NO IV SITE NOTED. PT'S WHEELCHAIR IS AT BEDSIDE. FALL PRECAUTIONS IN PLACE, CALL LIGHT WITHIN REACH. WILL CONT TO MONITOR PT.
--- NOTE | 2018-09-05 07:29 | NUR ---
ENDORSED PT TO DAY SHIFT NURSE CHARLI FOR CONTINUITY OF CARE. PT IN STABLE CONDITION.
[2018-09-05 08:00] VITALS: BP 152/84
[2018-09-05] MEDS: ASPIRIN 81 MG TAB.CHEW PO SCH (10:30)
[2018-09-05] MEDS: ATORVASTATIN 20 MG TAB PO SCH (10:31)
[2018-09-05] MEDS: ARIPiprazole 10 MG TAB PO SCH (10:31)
[2018-09-05] MEDS: BACLOFEN 10 MG TAB PO SCH ×2 (10:31→21:02)
[2018-09-05] MEDS: GABAPENTIN 300 MG CAP PO SCH ×3 (10:31→16:53)
--- NOTE | 2018-09-05 14:05 | NUR ---
PT COMFORTABLE IN BED, NO S/S OF DISTRESS OR C/O PAIN. CALL LIGHT WITHIN REACH. WILL CONT TO MONITOR
[2018-09-05 16:00] VITALS: BP 139/76
[2018-09-05] MEDS: NICOTINE TRANSD SYS 7 MG/24 HR PATCH TD SCH (16:00)
--- NOTE | 2018-09-05 17:00 | NUR ---
PT HAS BEEN MAKING PHONE CALLS TO DETERMINE A PLACE TO STAY WHEN SHE DC'S. SO FAR NO PLACE SHE FOUND THAT SHE WOULD BE WILLING TO GO. CHARGE NURSE, CUSTOMER SERVICE SECURITY OFFICER, MATERIALS MANAGEMENT MANAGER ARE AWARE.
--- NOTE | 2018-09-05 19:15 | NUR ---
RECEIVED REPORT FROM DAY SHIFT NURSE. AAOX4. NO C/O PAIN OR SOB. ON ROOM AIR. NO IV LINE. SKIN INTACT. PT IS PARAPLEGIC. PT'S FRIEND AT BEDSIDE. SAFETY PRECAUTION IN PLACE. CALL LIGHT WITHIN REACH.
--- NOTE | 2018-09-05 19:30 | NUR ---
PT ENDORSED TO PLANT HEALTH CARE TECHNICIAN IN STABLE CONDITION
--- NOTE | 2018-09-05 19:36 | NUR ---
Thermite Bomb Loader Note: Note for earlier today: Room and board and board and career guidance counselor Stewart came to evaluate patient. I was presented when Stewart met with patient. Stewart explained to patient the room and boards he makes referrals to will not be able accommodate her for two reasons. One is because she is paraplegic and will need assist with ADLs. The other reason is because her income is too low (she is willing to pay $700 per month). Patient asked Stewart if he knew of a place where she and her could live. She told Stewart her will be able to assist her with ADLs. Per Lacey, he was able to locate a room and board (address: [address] [place] [address]) that is willing to accommodate both patient and her for $1,400. Patient told Stewart she was going to ask her if he could assist her with housing expenses. [employer] Leader Sara, Tab Cutter Elsa, and I met with patient to discuss patients discharge plan. Patients was also at bedside. He introduced himself as patients friend. He appeared agitated and stated he could not assist patient with any housing expense and demanded we find them a place. We explained to both of them multiple efforts have been made to locate placement and the barriers that we have come across. She verbalized understanding. She told us that she does not have anyone who can provide her with financial assistance for housing expenses. Patient stated she is planning to return to [facility] because they have more community resources available compared to [facility]. Addendum: 09/05/18 at 1947 by Lizett Cameron SS I contacted room and board and board and career guidance counselor Stewart to ask him for assistance with placement, he agreed to meet with patient.
--- NOTE | 2018-09-05 21:00 | NUR ---
PT REFUSED HEPARIN. EXPLAINED TO PT THE RISK AND BENEFITS. PT VERBALIZED UNDERSTANDING BUT STILL REFUSED.
--- NOTE | 2018-09-05 23:45 | NUR ---
PT SLEEPING BUT EASILY AROUSABLE. RESP EVEN AND UNLABORED. SAFETY PRECAUTION IN PLACE. CALL LIGHT WITHIN REACH.
[2018-09-06] VITALS: BP 141/77
--- NOTE | 2018-09-06 03:06 | NUR ---
PT WAS CLEANED AND CHANGED. PT WAS REPOSITIONED. PT KEPT CLEAN, DRY AND COMFORTABLE.
--- NOTE | 2018-09-06 05:30 | NUR ---
PT SLEEPING. NO S/S OF PAIN OR DISCOMFORT. NO S/S OF RESP DISTRESS.
--- NOTE | 2018-09-06 07:10 | NUR ---
ENDORSED PT TO DAY SHIFT NURSE. PT IN STABLE CONDITION.
--- NOTE | 2018-09-06 07:20 | NUR ---
PT REPORT RECEIVED FROM CINDER SNAPPER NURSE. PT IS AWAKE AND ALERT, NO S/S OF ACUTE DISTRESS. PT ON ROOM AIR. VISITOR AT BEDSIDE. FALL PRECAUTIONS IN PLACE. CALL LIGHT WITHIN REACH.
[2018-09-06 08:00] VITALS: BP 143/68
--- NOTE | 2018-09-06 10:00 | NUR ---
PT'S BOYFRIEND INSISTING THAT PT BE DISCHARGED WITH A HIGHTOWER CATHETER BECAUSE THERE IS "NO ONE TO CHANGE HER DIAPERS". PT AND HER BOYFRIEND BEGAN TO ARGUE AND FIGHT ABOUT WHO IS GOING TO BE CHANGING HER WHEN SHE IS DC'D FROM THE HOSPITAL, AND THAT THE WANTS PT TO HAVE A HIGHTOWER CATHETER BECAUSE IT IS EASIER TO TAKE CARE OF. SECURITY HAD TO BE CALLED TO STOP THE COMMOTION. MD AND CHARGE NURSE ARE AWARE. THE BOYFRIEND SUBSEQUENTLY LEFT.
[2018-09-06] MEDS: ASPIRIN 81 MG TAB.CHEW PO SCH (10:30)
[2018-09-06] MEDS: GABAPENTIN 300 MG CAP PO SCH (10:30)
[2018-09-06] MEDS: ARIPiprazole 10 MG TAB PO SCH (10:30)
[2018-09-06] MEDS: ATORVASTATIN 20 MG TAB PO SCH (10:30)
[2018-09-06] MEDS: BACLOFEN 10 MG TAB PO SCH (10:30)
--- NOTE | 2018-09-06 13:30 | NUR ---
PT HAS DC'D. PT WAS GIVEN DISCHARGE INSTRUCTIONS AND SIGNATURES WERE OBTAINED. PT REFUSED PNA AND FLU VACCINES. WRIST BANDS WERE REMOVED. PT LEFT WITH ALL HER BELONGINGS VIA [facility] [employer].
== END 2018-09-06 13:30 | disposition home or self-care (01) | DRG 463 ==
LOC: MED 16:11 → MTU 17:52
PROVIDERS: ADMIT General Practice; ATTEND General Practice
DX: N39.0 Urinary tract infection, site not specified (principal); E44.0 Moderate protein-calorie malnutrition; G82.20 Paraplegia, unspecified; E66.01 Morbid (severe) obesity due to excess calories; E87.8 Other disorders of electrolyte and fluid balance, not elsewhere classified; E83.51 Hypocalcemia; G62.9 Polyneuropathy, unspecified; B96.4 Proteus (mirabilis) (morganii) as the cause of diseases classified elsewhere; B19.20 Unspecified viral hepatitis C without hepatic coma; F17.210 Nicotine dependence, cigarettes, uncomplicated; J98.11 Atelectasis; F15.10 Other stimulant abuse, uncomplicated; E86.0 Dehydration; G95.9 Disease of spinal cord, unspecified; E78.5 Hyperlipidemia, unspecified; F31.81 Bipolar II disorder; Z68.35 Body mass index [BMI] 35.0-35.9, adult; Z79.899 Other long term (current) drug therapy; A49.02 Methicillin resistant Staphylococcus aureus infection, unspecified site
CPT/HCPCS: 36415; 36600; 51702; 71045; 80048; 80053; 80305; 81001; 82009; 82150; 82550; 82803; 83036; 83605; 83690; 83735; 83880; 84100; 84439; 84443; 84484; 85025; 85610; 85730; 87040; 87081; 87086; 87186; 93005; 94640; 96365; 99285; J0696; J1644; J1885; J2060; J2270; J2543; J7030; J7060; J7620; Q0092